=== PATIENT | female | born 1960 | race Caucasian/White ===

== ENCOUNTER 2018-04-17 12:43 | Emergency (ER) | payer OTHER ==
[~2018-04-17] VITALS: Ht 157.5 cm; Wt 49.9 kg
--- NOTE | 2018-04-17 14:45 | Diagnostic Imaging Report ---
Examination: CT CERVICAL SPINE WITHOUT CONTRAST HISTORY:Fall with head injury. COMPARISON:None. TECHNIQUE: Multidetector helical axial images were obtained without contrast from the foramen magnum to T1. Coronal and sagittal reformatted images were done. Bone and soft tissue windows were evaluated. Dose modulation, iterative reconstruction, and/or weight based adjustment of the mA/kV was utilized to reduce the radiation dose to as low as reasonably achievable. FINDINGS: Alignment:Normal alignment and lordosis. Vertebrae: Normal height and density. No acute fracture, infection or neoplasm. Disc space heights: Normal height. Caliber of spinal canal: Developmentally normal. Posterior fossa and craniocervical junction: Foramen magnum patent. No Chiari 1 malformation. Soft tissues: No abnormality. Degenerative changes: No disc bulge/ herniation or canal stenosis. IMPRESSION: No acute abnormalities. Signed by: Dr. Lydia Moya M.D. on 04/17/2018 2:42 PM
--- NOTE | 2018-04-17 15:02 | Diagnostic Imaging Report ---
Examination: CT head without contrast Clinical Indication: Fall; head injury. Technique: Transaxial noncontrast images from the skull base through the vertex were obtained. Sagittal and coronal reformatted images were done. Dose modulation, iterative reconstruction, and/or weight based adjustment of the mA/kV was utilized to reduce the radiation dose to as low as reasonably achievable. Comparison: None. Findings: Scalp: No abnormalities. Bones: Intact. No fractures. No blastic or lytic lesions. Brain sulci: Moderate volume loss for patient's age. Ventricles: No hydrocephalus. Extra-axial space: No abnormalities. Parenchyma: Chronic lacunar infarct in the inferomedial left cerebellum. There are patchy areas of low-attenuation within subcortical and periventricular white matter, nonspecific, but could represent microvascular ischemic disease. No masses, hemorrhage, or acute or chronic cortical based vascular insults. Suprasellar region: No abnormalities. Craniocervical junction: The foramen magnum is patent. No Chiari one malformation. Incidental findings: Mild right sphenoid sinus inflammatory mucosal thickening. Impression: 1. No acute intracranial finding. 2. Mild chronic microvascular ischemic change and moderate volume loss. 3. Chronic lacunar infarct in the inferomedial left cerebellum. Signed by: Dr. Lydia Moya M.D. on 04/17/2018 2:58 PM
[2018-04-17] MEDS ORDERED: HYDROCODONE/APAP 5MG-325MG TAB PO ONE ×2 (18:00)
== END 2018-04-17 18:09 | disposition home or self-care (01) ==
LOC: ER 12:43
DX: S00.83XA Contusion of other part of head, initial encounter (principal); R51 Headache; W01.0XXA Fall on same level from slipping, tripping and stumbling without subsequent striking against object, initial encounter; Y92.128 Other place in nursing home as the place of occurrence of the external cause; G10 Huntington's disease; I10 Essential (primary) hypertension; F41.9 Anxiety disorder, unspecified
CPT/HCPCS: 70450; 72125; 99283

== ENCOUNTER 2020-06-19 12:30 | Emergency (ER) | payer OTHER ==
[~2020-06-19] VITALS: Ht 157.5 cm; Wt 49.9 kg
[2020-06-19 13:28] LABS: BASOPHILS % 0.3 % (0.0-1.0); EOSINOPHILS % 0.3 % (0.0-6.0); HEMATOCRIT 49.7 % (34.2-44.1); HEMOGLOBIN 14.8 g/dL (12.0-16.0); LYMPHOCYTES # (AUTO) 0.9 (1.0-3.2); LYMPHOCYTES % 12.2 % (18.0-39.1); MEAN CORPUSCULAR HEMOGLOBIN 26.8 pg (28-32); MEAN CORPUSCULAR HGB CONC 29.8 g/dL (31-35); MEAN CORPUSCULAR VOLUME 89.9 fL (81-99); MONOCYTES # (AUTO) 0.3 (0.2-0.8); MONOCYTES % 3.6 % (4.4-11.3); NEUTROPHILS # (AUTO) 6.2 (2.1-6.9); NEUTROPHILS % 83.3 % (38.7-80.0); PLATELET COUNT 347 x10e3/uL (140-360); RED BLOOD COUNT 5.53 x10e6/uL (3.6-5.1); RED CELL DISTRIBUTION WIDTH 17.4 % (11.7-14.4)
[2020-06-19 13:47] LABS: ALANINE AMINOTRANSFERASE 28 IU/L (0-55); ALBUMIN 3.6 g/dL (3.5-5.0); ALBUMIN/GLOBULIN RATIO 0.9 (0.8-2.0); ALKALINE PHOSPHATASE 76 IU/L (40-150); ANION GAP 16.7 mmol/L (8-16); BLOOD UREA NITROGEN 26 mg/dL (7-26); BUN/CREATININE RATIO 40 (6-25); CALCIUM 9.6 mg/dL (8.4-10.2); CARBON DIOXIDE 36 mmol/L (22-29); CHLORIDE 109 mmol/L (98-107); CREATINE KINASE 45 IU/L (29-168); CREATININE, SERUM 0.65 mg/dL (0.57-1.11); EST GLOMERULAR FILTRATION RATE > 60 ML/MIN (60-); GLUCOSE 103 mg/dL (74-118); POTASSIUM 3.7 mmol/L (3.5-5.1); SODIUM 158 mmol/L (136-145)
[2020-06-19 16:37] VITALS: BP 142/76
== END 2020-06-19 18:16 | disposition other institution (70) ==
LOC: ER 13:16
DX: E87.0 Hyperosmolality and hypernatremia (principal); R62.7 Adult failure to thrive; I10 Essential (primary) hypertension; F41.9 Anxiety disorder, unspecified; G10 Huntington's disease; G47.00 Insomnia, unspecified; Z11.52 Encounter for screening for COVID-19
CPT/HCPCS: 36415; 80053; 82550; 82553; 84484; 85025; 99283; U0002